=== PATIENT | female | born 1990 | race Caucasian/White ===

== ENCOUNTER 2023-09-16 19:03 | Emergency (ER) | payer OTHER, SELFPAY ==
[2023-09-16 19:30] VITALS: BP 140/94; PULSE 86; RESP 18; TEMP 37.1; O2SAT 97; BMI 24.9
--- NOTE | 2023-09-16 19:44 | EXP.UTC ---
Discharge Plan Disposition Patient Disposition: Home, Self-Care Condition: Good Prescriptions Prescriptions: New promethazine-DM 6.25-15 mg/5 mL Syrup 5 ml PO Q6H PRN (Reason: Cough) Qty: 240 0RF azithromycin [Zithromax] 250 mg tablet 250 mg PO UD DOSE PK Qty: 6 0RF Rx Instructions: Take two (2) tablets today, then one (1) tablet days #2 thru #5 methylprednisolone 4 mg Tablets,Dose Pack 4 mg PO DIRECTED 6 Days Qty: 21 0RF Rx Instructions: Take 1 pack as directed for 6 days guaifenesin [Mucinex] 600 mg tablet extended release 12hr 600 - 1,200 mg PO BIDP PRN (Reason: Congestion) Qty: 30 0RF Referrals Follow up/Referrals: Provider,Referral, MD [Primary Care Provider] - See instructions Activity Restrictions/Add. Instructions Additional Instructions/Restrictions: Drink plenty of fluids. Take tylenol or ibuprofen for pain or fever. Take the medications as directed. Follow up with your regular doctor. GO TO THE ER FOR ANY WORSENING SYMPTOMS Clinical Impressions Clinical Impression: Acute bronchitis, Acute viral syndrome Stand Alone Forms Stand Alone Forms: Work/School Release Instructions Patient Instructions: Acute Bronchitis, DI for Acute Bronchitis, DI for Viral Syndrome Discharge ED Provider: Chriss Carter [facility] General Stated complaint: cough, diff breathing Time Seen by Provider: 09/16/23 19:44 History of Present Illness Provider Complaint: She states that for the past 4 days she has had worsening chest congestion, sinus congestion, nonproductive cough, and malaise. She also has a headache. Related Data Previous Rx's Medication Instructions Recorded azithromycin 250 mg tablet 250 mg PO UD DOSE PK #6 tabs 09/16/23 (Zithromax) guaifenesin 600 mg tablet, 600 - 1,200 mg PO BIDP PRN 09/16/23 extended release 12 hr (Mucinex) Congestion #30 tabs methylprednisolone 4 mg tablets in 4 mg PO DIRECTED 6 days #21 tabs 09/16/23 a dose pack promethazine-DM 6.25 mg-15 mg/5 mL 5 ml PO Q6H PRN Cough #240 mL 09/16/23 oral syrup Allergies Allergy/AdvReac Type Severity Reaction Status Date / Time aspirin Allergy Verified 09/16/23 19:50 [facility] Disclaimer: The information contained in this section may have been updated after the patient was seen, as this information can be updated by other users. Social History Smoking Status: Never smoker alcohol intake: never current occupational status: employed Travel in the last 8 weeks: None ROS Obtained: Yes All systems reviewed & no additional complaints except as documented Constitutional Constitutional: Reports poor appetite Eyes Eyes: Reports system reviewed and no additional complaints, except as documented ENT Ears, Nose, Mouth, and Throat: Reports as per HPI Cardiovascular Cardiovascular: Reports system reviewed and no additional complaints, except as documented and Denies chest pain Respiratory Respiratory: Denies shortness of breath, Reports chest congestion, Reports cough, Denies stridor and Denies wheezing Gastrointestinal Gastrointestingal: Reports system reviewed and no additional complaints, except as documented; Denies abdominal pain, diarrhea or vomiting Musculoskeletal Musculoskeletal: Reports system reviewed and no additional complaints, except as documented and Denies arthralgias Integumentary/Breasts Skin/Breast: Reports system reviewed and no additional complaints, except as documented and Denies rash Neurologic Neurologic: Denies paresthesias Allergic/Immunologic Allergic/Immunologic: Denies wheezing Physical Exam General General appearance: alert and in no apparent distress Eye Eye exam: Present normal appearance, PERRL and EOMI ENT ENT exam: Present mucous membranes moist and normal external ear exam Expanded ENT Exam External ear exam: Present normal external inspection TM/Canal exam: Bilateral TM: erythema and bulging Nose exam: Absent sinus tenderness Nasal speculum exam: Bilateral: normal Mouth exam: Present normal external inspection; Absent drooling Teeth exam: Present normal inspection Throat exam: Present tonsillar erythema and tonsillomegaly Neck Neck exam: Present normal inspection, full ROM and trachea midline; Absent tenderness, lymphadenopathy or thyromegaly Chest Chest inspection: Present normal inspection and symmetric chest wall rise; Absent tenderness or rash Respiratory Respiratory exam: Present normal lung sounds bilaterally; Absent respiratory distress, wheezes, stridor or accessory muscle use Cardiovascular Cardiovascular exam: Present regular rate, normal rhythm and normal heart sounds Abdominal Exam Abdominal exam: Present soft; Absent distention, tenderness, guarding, rebound or rigidity Extremities Exam Extremities exam: Present normal inspection, full ROM and normal capillary refill; Absent tenderness or calf tenderness Back Exam Back exam: Present normal inspection and full ROM; Absent tenderness Neurological Exam Neurological exam: Present alert and oriented X3 Psychiatric Psychiatric exam: Present normal affect and normal mood Skin Skin exam: Present warm, dry, intact and normal color Lymphatic Lymphatic Findings: no adenopathy Medical Decision Making Medical Records Medical records reviewed: No I reviewed the patient's medical records. Adalberto Inquiry Pt receiving controlled substance: No Lab Data Lab results reviewed: Yes I reviewed the patient's lab results.
[2023-09-16 20:02] LABS: UTC Influenza A Antigen Negative (Negative)
[2023-09-16 20:03] LABS: UTC Influenza B Antigen Negative (Negative)
[2023-09-16 20:21] VITALS: BP 140/94; PULSE 86; RESP 18; TEMP 37.1; O2SAT 97
== END 2023-09-16 20:21 | disposition home or self-care (01) ==
PROVIDERS: Emergency Provider Nurse Practitioner Family
DX: J20.9 Acute bronchitis, unspecified (principal); B34.9 Viral infection, unspecified
CPT/HCPCS: 87635; 87804; 99204; 99212; G0463

== ENCOUNTER 2023-11-24 12:24 | Emergency (ER) | payer OTHER, SELFPAY ==
[2023-11-24 12:45] VITALS: BP 118/80; PULSE 90; RESP 18; TEMP 37; O2SAT 100; BMI 25.7
--- NOTE | 2023-11-24 12:55 | ED_ITS ---
Discharge Plan Disposition Patient Disposition: Home, Self-Care Condition: Good Prescriptions Prescriptions: New prednisone 10 mg tablet 10 mg PO BID 3 Days Qty: 6 0RF amoxicillin 875 mg tablet 875 mg PO Q12H Qty: 20 0RF [id number] [Bromfed DM] 2-30-10 mg/5 mL Syrup 5 ml PO Q6H PRN (Reason: Cough) Qty: 240 0RF ondansetron 4 mg Tablet,Disintegrating 4 mg PO Q8H PRN (Reason: Nausea) Qty: 8 0RF Referrals Follow up/Referrals: Provider,Referral, MD [Primary Care Provider] - See instructions Activity Restrictions/Add. Instructions Additional Instructions/Restrictions: Drink plenty of fluids. Take tylenol or ibuprofen for pain or fever. Take the medications as directed. Follow up with your regular doctor. GO TO THE ER FOR ANY WORSENING SYMPTOMS Clinical Impressions Clinical Impression: Acute viral syndrome, Sinusitis Stand Alone Forms Stand Alone Forms: Work/School Release Instructions Patient Instructions: DI for Sinusitis, DI for Viral Syndrome Discharge ED Provider: Chriss Carter [facility] General Stated complaint: congestion, sneezing, headache, fever, chills, Time Seen by Provider: 11/24/23 12:55 History of Present Illness Provider Complaint: She states that for the past 2 days she has had fever, malaise, headache, chills, and cough/congestion. Related Data Previous Rx's Medication Instructions Recorded amoxicillin 875 mg tablet 875 mg PO Q12H #20 tabs 11/24/23 [id number]-krvbgibluhyzdui-RM 5 ml PO Q6H PRN Cough #240 mL 11/24/23 2 mg-30 mg-10 mg/5 mL oral syrup (Bromfed DM) ondansetron 4 mg disintegrating 4 mg PO Q8H PRN Nausea #8 tabs 11/24/23 tablet prednisone 10 mg tablet 10 mg PO BID 3 days #6 tabs 11/24/23 Allergies Allergy/AdvReac Type Severity Reaction Status Date / Time aspirin Allergy Verified 11/24/23 12:59 [facility] Disclaimer: The information contained in this section may have been updated after the patient was seen, as this information can be updated by other users. Social History (Updated 09/16/23 @ 20:37 by Chriss Carter APRN) Smoking Status: Never smoker alcohol intake: never current occupational status: employed Travel in the last 8 weeks: None ROS Obtained: Yes All systems reviewed & no additional complaints except as documented Constitutional Constitutional: Reports chills and Reports fever(s) Eyes Eyes: Denies eye discharge ENT Ears, Nose, Mouth, and Throat: Reports as per HPI Cardiovascular Cardiovascular: Denies chest pain Respiratory Respiratory: Denies chest congestion and Reports cough Gastrointestinal Gastrointestingal: Reports nausea; Denies abdominal pain, constipation, cramping, diarrhea or vomiting Musculoskeletal Musculoskeletal: Denies arthralgias Integumentary/Breasts Skin/Breast: Denies rash Neurologic Neurologic: Denies paresthesias Physical Exam General General appearance: alert and in no apparent distress Eye Eye exam: Present normal appearance, PERRL and EOMI ENT ENT exam: Present mucous membranes moist and normal external ear exam Expanded ENT Exam External ear exam: Present normal external inspection TM/Canal exam: Bilateral TM: erythema and bulging Nose exam: Absent sinus tenderness Nasal speculum exam: Bilateral: normal Mouth exam: Present normal external inspection; Absent drooling Teeth exam: Present normal inspection Throat exam: Present tonsillar erythema and tonsillomegaly Neck Neck exam: Present normal inspection, full ROM and trachea midline; Absent tenderness, lymphadenopathy or thyromegaly Chest Chest inspection: Present normal inspection and symmetric chest wall rise; Absent tenderness or rash Respiratory Respiratory exam: Present normal lung sounds bilaterally; Absent respiratory distress, wheezes, stridor or accessory muscle use Cardiovascular Cardiovascular exam: Present regular rate, normal rhythm and normal heart sounds Abdominal Exam Abdominal exam: Present soft; Absent distention, tenderness, guarding, rebound or rigidity Extremities Exam Extremities exam: Present normal inspection, full ROM and normal capillary refill; Absent tenderness or calf tenderness Back Exam Back exam: Present normal inspection and full ROM; Absent tenderness Neurological Exam Neurological exam: Present alert and oriented X3 Psychiatric Psychiatric exam: Present normal affect and normal mood Skin Skin exam: Present warm, dry, intact and normal color Lymphatic Lymphatic Findings: no adenopathy Medical Decision Making Medical Records Medical records reviewed: No I reviewed the patient's medical records. Adalberto Inquiry Pt receiving controlled substance: No Lab Data Lab results reviewed: Yes I reviewed the patient's lab results.
[2023-11-24 13:13] LABS: UTC Strep Screen (Rapid) Negative (Negative)
[2023-11-24 13:14] LABS: UTC Influenza A Antigen Negative (Negative); UTC Influenza B Antigen Negative (Negative)
--- NOTE | 2023-11-24 13:55 | PC.NURSE ---
Sent up rapid flu and covid to lab
[2023-11-24 13:56] VITALS: BP 118/80; PULSE 90; RESP 18; TEMP 37; O2SAT 100
[2023-11-24 14:00] LABS: Influenza A, PCR Not Detected (NotDetected); Influenza B, PCR Not Detected (NotDetected)
[2023-11-24 14:58] LABS: Coronavirus 19, PCR Detected (NotDetected)
== END 2023-11-24 13:56 | disposition home or self-care (01) ==
PROVIDERS: Emergency Provider Nurse Practitioner Family
DX: J01.90 Acute sinusitis, unspecified (principal); B34.9 Viral infection, unspecified; R09.81 Nasal congestion; R51.9 Headache, unspecified; R50.9 Fever, unspecified; R05.9 Cough, unspecified
CPT/HCPCS: 87636; 87804; 87880; 99212; 99214; G0463

== ENCOUNTER 2023-12-27 12:23 | Emergency (ER) | payer OTHER, SELFPAY ==
[2023-12-27] VITALS (10 sets, daily range): BP systolic 90–124; BP diastolic 55–84; PULSE 64–83; RESP 15–18; TEMP 36.6–37.1; O2SAT 98–100; BMI 25.7
--- NOTE | 2023-12-27 12:38 | PC.NURSE ---
Pt brought over from [facility]
--- NOTE | 2023-12-27 13:31 | PC.NURSE ---
Rounded on pt and they had no needs at this time
[2023-12-27 13:43] LABS: Microscopic, Urine URINE MICROSCOPIC (MICROSCOPIC)
[2023-12-27 13:53] LABS: Appearance,Urine CLEAR (Clear); Bilirubin,Urine Negative (Negative); Blood, Urine Negative (Negative); Color,Urine YELLOW (Yellow); Glucose,Urine (UA) Negative (Negative); Ketones,Urine Negative (Negative); Leukocyte Esterase,Urine Negative (Negative); Nitrate,Urine Negative (Negative); Protein,Urine Negative (Negative); Specific Gravity, Urine 1.025 (1.005-1.030)
[2023-12-27 14:02] LABS: Alanine Aminotransferase 16 U/L (12-78); Albumin Level 4.5 g/dl (3.5-5.0); Albumin/Globulin Ratio 1.3 (1.1-1.8); Alkaline Phosphatase 50 U/L (38-126); Anion Gap 10.6 mEq/L (5-15); Aspartate Amino Transferase 25 U/L (14-36); Basophils # 0.1 K/mm3 (0-0.2); Basophils % 1.1 % (0.1-2.0); Bilirubin,Total 0.4 mg/dl (0.2-1.3); Blood Urea Nitrogen 8 mg/dl (7-17); Calcium 9.2 mg/dl (8.4-10.2); Carbon Dioxide 27 mmol/L (22.0-30.0); Chloride 106 mmol/L (98-107); Creatinine Clearance Estimated 123 mL/min (50-200); Eosinophils # 0.1 K/mm3 (0.0-0.4); Eosinophils % 1.7 % (0.1-12.0); Estimated Glomerular Filt Rate 96 ml/min (>60); GFR (African American) 117 ML/MIN (>60); Globulin 3.4 g/dL (1.3-3.2); Glucose 83 mg/dl (74-100); Hematocrit 41.5 % (37.0-47.0); Hemoglobin 13.2 g/dL (12.2-16.2); Lipase 54 U/L (23-300); Lymphocytes # 2.7 K/mm3 (0.7-4.5); Lymphocytes % 34.4 % (10-50); Mean Corpuscular HGB Conc 31.8 g/dL (31.8-35.4); Mean Corpuscular Hemoglobin 26.6 pg (27.0-31.2); Mean Corpuscular Volume 83.7 fl (81-99); Mean Platelet Volume 9.4 fl (7.4-10.4); Monocytes # 0.6 K/mm3 (0.1-1.0); Monocytes % 8.2 % (1.7-9.3); Neutrophils # 4.2 K/mm3 (1.8-7.8); Neutrophils % 54.7 % (37.0-80.0); Platelet Count 266 K/mm3 (142-424); Potassium 3.6 mmoL/L (3.5-5.1); Red Blood Count 4.96 M/mm3 (4.20-5.40); Red Cell Distribution Width 14.1 % (11.5-17.5); Sodium 140 mmol/L (136-145); Total Protein,Serum 7.9 g/dl (6.3-8.2); White Blood Count 7.7 K/mm3 (4.8-10.8)
--- NOTE | 2023-12-27 14:05 | ED_ITS ---
<Statement entered by Luly Eason MD - 12/27/23 22:04> I was consulted by the BRITTANEY, and we discussed the complexity of the problems being addressed. I approved the treatment and management plan for this patient's care in the emergency department, thus performing a substantive portion of the medical decision making. Luly Eason MD, ARNULFO, FACEP Discharge Plan Disposition Patient Disposition: Home, Self-Care Condition: Good Prescriptions Prescriptions: New sulfamethoxazole-trimethoprim [Bactrim DS] 800-160 mg tablet 1 tab PO BID 35 Days Qty: 70 0RF ondansetron 4 mg tablet,disintegrating 4 mg PO Q6H PRN (Reason: nausea and vomiting) Qty: 10 0RF No Action prednisone 10 mg tablet 10 mg PO BID 3 Days Qty: 6 0RF amoxicillin 875 mg tablet 875 mg PO Q12H Qty: 20 0RF hohugqgagbhqewd-jpsmfioon-YB [Bromfed DM] 2-30-10 mg/5 mL Syrup 5 ml PO Q6H PRN (Reason: Cough) Qty: 240 0RF ondansetron 4 mg Tablet,Disintegrating 4 mg PO Q8H PRN (Reason: Nausea) Qty: 8 0RF Referrals Follow up/Referrals: Provider,Referral, [Primary Care Provider] - See instructions Activity Restrictions/Add. Instructions Additional Instructions/Restrictions: Please take all medication as prescribed. Alternate Tylenol and Motrin every 4 hours as needed for symptoms. Return to the ER or your PCP as needed for any worsening change in your symptoms or no improvement. Clinical Impressions Clinical Impression: Urinary tract infection Discharge ED Provider: Josemanuel Paz General Adult HPI <JOSH Craven - Last Filed: 12/28/23 14:42> General Chief complaint: Abdominal Pain Stated complaint: Pain when urinating, pain in L abd, vomiting, naus Time Seen by Provider: 12/27/23 14:05 Mode of Arrival: Ambulatory Limitations: No Limitations Description of Symptoms (Recalled from ER Triage Doc. by RN): Patient reports left sided flank pain x3 days. Pt has a hx of kidney stones and UTIs. History of Present Illness HPI narrative: Patient presents for 3 days of left flank pain nausea vomiting and pain with urination. Patient has a history of previous kidney stones also of previous urinary tract infections. Patient had leftover antibiotics and has been taking those but her symptoms are unchanged. Patient denies fever chest pain shortness of breath chills hemoptysis hematochezia hematemesis melena hematuria. Related Data Previous Rx's Medication Instructions Recorded amoxicillin 875 mg tablet 875 mg PO Q12H #20 tabs 11/24/23 mogrpsbejxjilyy-lghtqyriqqxgrba-LC 5 ml PO Q6H PRN Cough #240 mL 11/24/23 2 mg-30 mg-10 mg/5 mL oral syrup (Bromfed DM) ondansetron 4 mg disintegrating 4 mg PO Q8H PRN Nausea #8 tabs 11/24/23 tablet prednisone 10 mg tablet 10 mg PO BID 3 days #6 tabs 11/24/23 ondansetron 4 mg disintegrating 4 mg PO Q6H PRN nausea and 12/27/23 tablet vomiting #10 tabs sulfamethoxazole 800 1 tab PO BID 5 weeks #70 tabs 12/27/23 mg-trimethoprim 160 mg tablet (Bactrim DS) Allergies Allergy/AdvReac Type Severity Reaction Status Date / Time aspirin Allergy Verified 11/24/23 12:59 [facility] <JOSH Craven - Last Filed: 12/28/23 14:42> [facility] Disclaimer: The information contained in this section may have been updated after the patient was seen, as this information can be updated by other users. Social History (Updated 09/16/23 @ 20:37 by Chriss Carter APRN) Smoking Status: Never smoker alcohol intake: never current occupational status: employed Travel in the last 8 weeks: None <OJSH Craven - Last Filed: 12/28/23 14:42> ROS Obtained: Yes Systems reviewed as appropriate & no additional complaints except as documented Physical Exam <JOSH Craven - Last Filed: 12/28/23 14:42> General General appearance: alert and in no apparent distress Chest Chest inspection: Present normal inspection and symmetric chest wall rise; Absent tenderness Respiratory Respiratory exam: Present normal lung sounds bilaterally; Absent respiratory distress Cardiovascular Cardiovascular exam: Present regular rate, normal rhythm and normal heart sounds Abdominal Exam Abdominal exam: Present soft, tenderness (Patient is tender to palpation in the left sided quadrants suprapubic area) and normal bowel sounds; Absent guarding, rebound or rigidity Extremities Exam Extremities exam: Present normal inspection and full ROM Back Exam Back exam: Present normal inspection, full ROM and CVA tenderness (L) (Presently tender to percussion) Neurological Exam Neurological exam: Present alert and oriented X3 Psychiatric Psychiatric exam: Present normal affect and normal mood Skin Skin exam: Present warm, dry and normal color Lymphatic Lymphatic Findings: no adenopathy Medical Decision Making <JOSH Craven - Last Filed: 12/28/23 14:42> Medical Records Medical records reviewed: Yes I reviewed the patient's medical records. Adalberto Inquiry Pt receiving controlled substance: No Vital Signs: 12/27/23 12:47 12/27/23 13:00 12/27/23 13:30 Temperature 98.7 F Temperature Source Oral Pulse Rate 78 73 Pulse Rate [Right Brachial] 83 Respiratory Rate 18 Blood Pressure 90/58 L 103/68 L Blood Pressure [Right Arm] 124/84 Blood Pressure Mean Blood Pressure Mean [Right Arm] 97 Blood Pressure Source [Right Arm] Automatic Cuff Blood Pressure Position [Right Arm] Sitting 02 Sat by Pulse Oximetry 99 98 98 Oxygen Delivery Method Room Air Room Air Room Air 12/27/23 14:00 12/27/23 14:30 12/27/23 15:30 Temperature Temperature Source Pulse Rate 64 71 74 Pulse Rate [Right Brachial] Respiratory Rate Blood Pressure 92/55 L 92/57 L 95/56 L Blood Pressure [Right Arm] Blood Pressure Mean 69 Blood Pressure Mean [Right Arm] Blood Pressure Source [Right Arm] Blood Pressure Position [Right Arm] 02 Sat by Pulse Oximetry 99 99 100 Oxygen Delivery Method Room Air Room Air 12/27/23 15:53 12/27/23 16:00 12/27/23 16:30 Temperature Temperature Source Pulse Rate 83 74 64 Pulse Rate [Right Brachial] Respiratory Rate Blood Pressure 99/63 L 93/58 L 95/63 L Blood Pressure [Right Arm] Blood Pressure Mean 74 72 68 Blood Pressure Mean [Right Arm] Blood Pressure Source [Right Arm] Blood Pressure Position [Right Arm] 02 Sat by Pulse Oximetry 99 100 98 Oxygen Delivery Method 12/27/23 17:18 Temperature 97.9 F Temperature Source Pulse Rate 64 Pulse Rate [Right Brachial] Respiratory Rate 15 Blood Pressure 95/63 L Blood Pressure [Right Arm] Blood Pressure Mean Blood Pressure Mean [Right Arm] Blood Pressure Source [Right Arm] Blood Pressure Position [Right Arm] 02 Sat by Pulse Oximetry Oxygen Delivery Method Lab Data Lab results reviewed: Yes I reviewed the patient's lab results. Lab Results 12/27/23 12:40: WBC 7.7, RBC 4.96, Hgb 13.2, Hct 41.5, MCV 83.7, MCH 26.6 L, MCHC 31.8, RDW 14.1, Plt Count 266, MPV 9.4, Neut % (Auto) 54.7, Lymph % (Auto) 34.4, Jackson % (Auto) 8.2, Eos % (Auto) 1.7, Baso % (Auto) 1.1, Neut # (Auto) 4.2, Lymph # (Auto) 2.7, Jackson # (Auto) 0.6, Eos # (Auto) 0.1, Baso # (Auto) 0.1, Sodium 140, Potassium 3.6, Chloride 106, Carbon Dioxide 27, Anion Gap 10.6, BUN 8, Creatinine 0.70, Estimated Creat Clear 123, Estimated GFR 96, Est GFR ( Amer) 117, Glucose 83, Calcium 9.2, Total Bilirubin 0.4, AST 25, ALT 16, Alkaline Phosphatase 50, Total Protein 7.9, Albumin 4.5, Globulin 3.4 H, Albumin/Globulin Ratio 1.3, Lipase 54, Serum HCG, Qual Negative, Urine Color Yellow, Urine Appearance Clear, Urine pH 6.0, Ur Specific Ulman 1.025, Urine Protein Negative, Urine Glucose (UA) Negative, Urine Ketones Negative, Urine Blood Negative, Urine Nitrate Negative, Urine Bilirubin Negative, Urine Urobilinogen 1.0, Ur Leukocyte Esterase Negative, Urine RBC None, Urine WBC Occasional, Ur Squamous Epith Cells 10-20, Urine Bacteria Trace 12/27/23 12:40 12/27/23 12:40 Orders (Tests/Meds): ED MEDICATIONS Discontinued Medications Generic Name Dose Route Start Last Admin Trade Name Freq PRN Reason Stop Dose Admin Acetaminophen 1,000 mg 12/27/23 14:23 12/27/23 14:36 Acetaminophen 1,000mg/100ml Vial IV 12/27/23 14:24 1,000 mg ONCE ONE Administration Lactated Ringer's 1,000 mls @ 999 mls/hr 12/27/23 14:23 12/27/23 14:36 Lactated Ringer's 1000 Ml Bag IV 12/27/23 15:23 999 mls/hr .Q1H1M ONE Administration Lactated Ringer's 1,000 mls @ 999 mls/hr 12/27/23 15:54 12/27/23 16:09 Lactated Ringer's 1000 Ml Bag IV 12/27/23 16:54 999 mls/hr .Q1H1M ONE Administration Iopamidol 75 ml 12/27/23 15:05 12/27/23 15:12 Iopamidol-370 (76%);100ml Bottle IV 12/27/23 15:06 75 ml ONCE ONE Administration Ketorolac Tromethamine 15 mg 12/27/23 14:23 12/27/23 14:36 Ketorolac 30mg/Ml Vial IV 12/27/23 14:24 15 mg ONCE ONE Administration Sodium Chloride 10 ml 12/27/23 13:04 Sodium Chloride 0.9% 10ml Flush Syringe IV 01/26/24 13:03 NEEDED PRN Maintain IV Site Sodium Chloride 10 ml 12/27/23 15:05 Sodium Chloride 0.9% 10ml Syr (Rad Only) IV 01/26/24 15:04 NEEDED PRN Maintain IV Site ORDERS Category Date Time Status CT abdomen pelvis w con Stat Cat Scan 12/27/23 14:23 Completed Complete Blood Count Auto Diff Stat Lab 12/27/23 12:40 Completed Comprehensive Metabolic Panel Stat Lab 12/27/23 12:40 Completed HCG Qualitative, Serum Stat Lab 12/27/23 12:40 Completed Lipase Stat Lab 12/27/23 12:40 Completed Urinalysis and Microscopic Stat Lab 12/27/23 12:40 Completed Medical Decision Narrative: In summary patient is a 33-year-old female who presents to the emergency department for evaluation of 3 days of left flank pain dysuria nausea vomiting. Patient is satting at 100% on room air with a systolic blood pressure of 95/56 heart rate is 74 respiratory rate of 18 upon arrival, and afebrile. Physical exam is remarkable for left flank CVA tenderness to percussion, tenderness to palpation in the left upper quadrant left lower quadrant and suprapubic area. Bowel sounds are normal. No rebound or guarding or rigidity.. Differential diagnosis includes complicated urinary tract infection versus kidney stone versus pyelonephritis versus gastrointestinal cause.. Initial workup will be conducted with hematologic labs urine CT scan of the abdomen pelvis. Initial interventions include crystalloid bolus Toradol and Tylenol. Initial workup reviewed by me shows that her hematologic labs are nonactionable including normal white count with no shift pyuria with trace bacteria although it is contaminated with skin cells . Upon repeat evaluation patient does reporting proved constitutional symptoms of flank pain and abdominal pain. Given this patient is appropriate for discharge at this time and will be discharged with a prescription for Zofran with follow-up with her PCP. I was consulted by the BRITTANEY, and we discussed the complexity of the problems being addressed. I approved the treatment and management plan for this patient's care in the Emergency Department, thus performing a substantive portion of the medical decision making. Josemanuel Paz DO <Josemanuel Paz DO - Last Filed: 12/27/23 16:11> Vital Signs: 12/27/23 12:47 12/27/23 13:00 12/27/23 13:30 Temperature 98.7 F Temperature Source Oral Pulse Rate 78 73 Pulse Rate [Right Brachial] 83 Respiratory Rate 18 Blood Pressure 90/58 L 103/68 L Blood Pressure [Right Arm] 124/84 Blood Pressure Mean Blood Pressure Mean [Right Arm] 97 Blood Pressure Source [Right Arm] Automatic Cuff Blood Pressure Position [Right Arm] Sitting 02 Sat by Pulse Oximetry 99 98 98 Oxygen Delivery Method Room Air Room Air Room Air 12/27/23 14:00 12/27/23 14:30 12/27/23 15:30 Temperature Temperature Source Pulse Rate 64 71 74 Pulse Rate [Right Brachial] Respiratory Rate Blood Pressure 92/55 L 92/57 L 95/56 L Blood Pressure [Right Arm] Blood Pressure Mean 69 Blood Pressure Mean [Right Arm] Blood Pressure Source [Right Arm] Blood Pressure Position [Right Arm] 02 Sat by Pulse Oximetry 99 99 100 Oxygen Delivery Method Room Air Room Air 12/27/23 15:53 12/27/23 16:00 12/27/23 16:30 Temperature Temperature Source Pulse Rate 83 74 64 Pulse Rate [Right Brachial] Respiratory Rate Blood Pressure 99/63 L 93/58 L 95/63 L Blood Pressure [Right Arm] Blood Pressure Mean 74 72 68 Blood Pressure Mean [Right Arm] Blood Pressure Source [Right Arm] Blood Pressure Position [Right Arm] 02 Sat by Pulse Oximetry 99 100 98 Oxygen Delivery Method 12/27/23 17:18 Temperature 97.9 F Temperature Source Pulse Rate 64 Pulse Rate [Right Brachial] Respiratory Rate 15 Blood Pressure 95/63 L Blood Pressure [Right Arm] Blood Pressure Mean Blood Pressure Mean [Right Arm] Blood Pressure Source [Right Arm] Blood Pressure Position [Right Arm] 02 Sat by Pulse Oximetry Oxygen Delivery Method Lab Data Lab Results 12/27/23 12:40: WBC 7.7, RBC 4.96, Hgb 13.2, Hct 41.5, MCV 83.7, MCH 26.6 L, MCHC 31.8, RDW 14.1, Plt Count 266, MPV 9.4, Neut % (Auto) 54.7, Lymph % (Auto) 34.4, Jackson % (Auto) 8.2, Eos % (Auto) 1.7, Baso % (Auto) 1.1, Neut # (Auto) 4.2, Lymph # (Auto) 2.7, Jackson # (Auto) 0.6, Eos # (Auto) 0.1, Baso # (Auto) 0.1, Sodium 140, Potassium 3.6, Chloride 106, Carbon Dioxide 27, Anion Gap 10.6, BUN 8, Creatinine 0.70, Estimated Creat Clear 123, Estimated GFR 96, Est GFR ( Amer) 117, Glucose 83, Calcium 9.2, Total Bilirubin 0.4, AST 25, ALT 16, Alkaline Phosphatase 50, Total Protein 7.9, Albumin 4.5, Globulin 3.4 H, Albumin/Globulin Ratio 1.3, Lipase 54, Serum HCG, Qual Negative, Urine Color Yellow, Urine Appearance Clear, Urine pH 6.0, Ur Specific Ulman 1.025, Urine Protein Negative, Urine Glucose (UA) Negative, Urine Ketones Negative, Urine Blood Negative, Urine Nitrate Negative, Urine Bilirubin Negative, Urine Urobilinogen 1.0, Ur Leukocyte Esterase Negative, Urine RBC None, Urine WBC Occasional, Ur Squamous Epith Cells 10-20, Urine Bacteria Trace Orders (Tests/Meds): ED MEDICATIONS Discontinued Medications Generic Name Dose Route Start Last Admin Trade Name Omerq PRN Reason Stop Dose Admin Acetaminophen 1,000 mg 12/27/23 14:23 12/27/23 14:36 Acetaminophen 1,000mg/100ml Vial IV 12/27/23 14:24 1,000 mg ONCE ONE Administration Lactated Ringer's 1,000 mls @ 999 mls/hr 12/27/23 14:23 12/27/23 14:36 Lactated Ringer's 1000 Ml Bag IV 12/27/23 15:23 999 mls/hr .Q1H1M ONE Administration Lactated Ringer's 1,000 mls @ 999 mls/hr 12/27/23 15:54 12/27/23 16:09 Lactated Ringer's 1000 Ml Bag IV 12/27/23 16:54 999 mls/hr .Q1H1M ONE Administration Iopamidol 75 ml 12/27/23 15:05 12/27/23 15:12 Iopamidol-370 (76%);100ml Bottle IV 12/27/23 15:06 75 ml ONCE ONE Administration Ketorolac Tromethamine 15 mg 12/27/23 14:23 12/27/23 14:36 Ketorolac 30mg/Ml Vial IV 12/27/23 14:24 15 mg ONCE ONE Administration Sodium Chloride 10 ml 12/27/23 13:04 Sodium Chloride 0.9% 10ml Flush Syringe IV 01/26/24 13:03 NEEDED PRN Maintain IV Site Sodium Chloride 10 ml 12/27/23 15:05 Sodium Chloride 0.9% 10ml Syr (Rad Only) IV 01/26/24 15:04 NEEDED PRN Maintain IV Site ORDERS Category Date Time Status CT abdomen pelvis w con Stat Cat Scan 12/27/23 14:23 Completed Complete Blood Count Auto Diff Stat Lab 12/27/23 12:40 Completed Comprehensive Metabolic Panel Stat Lab 12/27/23 12:40 Completed HCG Qualitative, Serum Stat Lab 12/27/23 12:40 Completed Lipase Stat Lab 12/27/23 12:40 Completed Urinalysis and Microscopic Stat Lab 12/27/23 12:40 Completed Medical Decision Narrative: In summary patient is a 33-year-old female who presents to the emergency department for evaluation of 3 days of left flank pain dysuria nausea vomiting. Patient is satting at 100% on room air with a systolic blood pressure of 95/56 heart rate is 74 respiratory rate of 18 upon arrival, and afebrile. Physical exam is remarkable for left flank CVA tenderness to percussion, tenderness to palpation in the left upper quadrant left lower quadrant and suprapubic area. Bowel sounds are normal. No rebound or guarding or rigidity.. Differential diagnosis includes complicated urinary tract infection versus kidney stone versus pyelonephritis versus gastrointestinal cause.. Initial workup will be conducted with hematologic labs urine CT scan of the abdomen pelvis. Initial interventions include crystalloid bolus Toradol and Tylenol. Initial workup reviewed by me shows that her hematologic labs are nonactionable including normal white count with no shift pyuria with trace bacteria although it is contaminated with skin cells . Upon repeat evaluation patient does reporting proved constitutional symptoms of flank pain and abdominal pain. Given this [patient is appropriate for discharge at this time and will be discharged with a prescription for... The case was discussed with hospital medicine regarding management and they will admit the patient their service for continued evaluation at this time... Etc.] I was consulted by the BRITTANEY, and we discussed the complexity of the problems being addressed. I approved the treatment and management plan for this patient's care in the Emergency Department, thus performing a substantive portion of the medical decision making. Josemanuel Paz DO <Luly Eason MD - Last Filed: 12/27/23 22:04> Vital Signs: 12/27/23 12:47 12/27/23 13:00 12/27/23 13:30 Temperature 98.7 F Temperature Source Oral Pulse Rate 78 73 Pulse Rate [Right Brachial] 83 Respiratory Rate 18 Blood Pressure 90/58 L 103/68 L Blood Pressure [Right Arm] 124/84 Blood Pressure Mean Blood Pressure Mean [Right Arm] 97 Blood Pressure Source [Right Arm] Automatic Cuff Blood Pressure Position [Right Arm] Sitting 02 Sat by Pulse Oximetry 99 98 98 Oxygen Delivery Method Room Air Room Air Room Air 12/27/23 14:00 12/27/23 14:30 12/27/23 15:30 Temperature Temperature Source Pulse Rate 64 71 74 Pulse Rate [Right Brachial] Respiratory Rate Blood Pressure 92/55 L 92/57 L 95/56 L Blood Pressure [Right Arm] Blood Pressure Mean 69 Blood Pressure Mean [Right Arm] Blood Pressure Source [Right Arm] Blood Pressure Position [Right Arm] 02 Sat by Pulse Oximetry 99 99 100 Oxygen Delivery Method Room Air Room Air 12/27/23 15:53 12/27/23 16:00 12/27/23 16:30 Temperature Temperature Source Pulse Rate 83 74 64 Pulse Rate [Right Brachial] Respiratory Rate Blood Pressure 99/63 L 93/58 L 95/63 L Blood Pressure [Right Arm] Blood Pressure Mean 74 72 68 Blood Pressure Mean [Right Arm] Blood Pressure Source [Right Arm] Blood Pressure Position [Right Arm] 02 Sat by Pulse Oximetry 99 100 98 Oxygen Delivery Method 12/27/23 17:18 Temperature 97.9 F Temperature Source Pulse Rate 64 Pulse Rate [Right Brachial] Respiratory Rate 15 Blood Pressure 95/63 L Blood Pressure [Right Arm] Blood Pressure Mean Blood Pressure Mean [Right Arm] Blood Pressure Source [Right Arm] Blood Pressure Position [Right Arm] 02 Sat by Pulse Oximetry Oxygen Delivery Method Lab Data Lab Results 12/27/23 12:40: WBC 7.7, RBC 4.96, Hgb 13.2, Hct 41.5, MCV 83.7, MCH 26.6 L, MCHC 31.8, RDW 14.1, Plt Count 266, MPV 9.4, Neut % (Auto) 54.7, Lymph % (Auto) 34.4, Jackson % (Auto) 8.2, Eos % (Auto) 1.7, Baso % (Auto) 1.1, Neut # (Auto) 4.2, Lymph # (Auto) 2.7, Jackson # (Auto) 0.6, Eos # (Auto) 0.1, Baso # (Auto) 0.1, Sodium 140, Potassium 3.6, Chloride 106, Carbon Dioxide 27, Anion Gap 10.6, BUN 8, Creatinine 0.70, Estimated Creat Clear 123, Estimated GFR 96, Est GFR ( Amer) 117, Glucose 83, Calcium 9.2, Total Bilirubin 0.4, AST 25, ALT 16, Alkaline Phosphatase 50, Total Protein 7.9, Albumin 4.5, Globulin 3.4 H, Albumin/Globulin Ratio 1.3, Lipase 54, Serum HCG, Qual Negative, Urine Color Yellow, Urine Appearance Clear, Urine pH 6.0, Ur Specific Ulman 1.025, Urine Protein Negative, Urine Glucose (UA) Negative, Urine Ketones Negative, Urine Blood Negative, Urine Nitrate Negative, Urine Bilirubin Negative, Urine Urobilinogen 1.0, Ur Leukocyte Esterase Negative, Urine RBC None, Urine WBC Occasional, Ur Squamous Epith Cells 10-20, Urine Bacteria Trace Orders (Tests/Meds): ED MEDICATIONS Discontinued Medications Generic Name Dose Route Start Last Admin Trade Name Freq PRN Reason Stop Dose Admin Acetaminophen 1,000 mg 12/27/23 14:23 12/27/23 14:36 Acetaminophen 1,000mg/100ml Vial IV 12/27/23 14:24 1,000 mg ONCE ONE Administration Lactated Ringer's 1,000 mls @ 999 mls/hr 12/27/23 14:23 12/27/23 14:36 Lactated Ringer's 1000 Ml Bag IV 12/27/23 15:23 999 mls/hr .Q1H1M ONE Administration Lactated Ringer's 1,000 mls @ 999 mls/hr 12/27/23 15:54 12/27/23 16:09 Lactated Ringer's 1000 Ml Bag IV 12/27/23 16:54 999 mls/hr .Q1H1M ONE Administration Iopamidol 75 ml 12/27/23 15:05 12/27/23 15:12 Iopamidol-370 (76%);100ml Bottle IV 12/27/23 15:06 75 ml ONCE ONE Administration Ketorolac Tromethamine 15 mg 12/27/23 14:23 12/27/23 14:36 Ketorolac 30mg/Ml Vial IV 12/27/23 14:24 15 mg ONCE ONE Administration Sodium Chloride 10 ml 12/27/23 13:04 Sodium Chloride 0.9% 10ml Flush Syringe IV 01/26/24 13:03 NEEDED PRN Maintain IV Site Sodium Chloride 10 ml 12/27/23 15:05 Sodium Chloride 0.9% 10ml Syr (Rad Only) IV 01/26/24 15:04 NEEDED PRN Maintain IV Site ORDERS Category Date Time Status CT abdomen pelvis w con Stat Cat Scan 12/27/23 14:23 Completed Complete Blood Count Auto Diff Stat Lab 12/27/23 12:40 Completed Comprehensive Metabolic Panel Stat Lab 12/27/23 12:40 Completed HCG Qualitative, Serum Stat Lab 12/27/23 12:40 Completed Lipase Stat Lab 12/27/23 12:40 Completed Urinalysis and Microscopic Stat Lab 12/27/23 12:40 Completed Critical Care <Luly Eason MD - Last Filed: 12/27/23 22:04> Critical Care Time Critical Care Time: No
--- NOTE | 2023-12-27 14:23 | CT_ITS ---
FINAL REPORT TECHNIQUE: After the administration of oral and intravenous contrast, axial images were obtained through the abdomen and pelvis by computed tomography. The study was performed with techniques to keep radiation dose as low as reasonably achievable, (ALARA). Individual dose reduction techniques using automated exposure control or adjustment of mA and/or kV according to the patient's size were employed. CLINICAL HISTORY: left flank pain COMPARISON: None FINDINGS: Abdomen: A calcified granuloma is noted in the lingula, otherwise the lung bases are clear. The liver parenchyma is homogeneous. The gallbladder is present. The spleen, pancreas, adrenals and kidneys appear unremarkable. The aorta is normal in caliber. There is no free fluid or adenopathy. There is moderate stool present throughout the colon. Pelvis: The appendix is normal in appearance. The urinary bladder is unremarkable. The uterus is eccentric to the patient's right. There is trace free fluid in the pelvis that may be physiologic. IMPRESSION: No acute intra-abdominal process. Moderate stool present throughout the colon. Trace free fluid in the pelvis that may be physiologic. Reviewed, Interpreted and Dictated by Agus Browning MD Transcribed by Kellen Scott Authenticated and . [facility]
[2023-12-27 14:30] LABS: WBC,Urine Occasional #/hpf (0-3)
[2023-12-27 14:31] LABS: Bacteria,Urine Trace /lpf
[2023-12-27] MEDS: KETOROLAC 30MG/ML VIAL 15 MG IV (14:36)
[2023-12-27] MEDS: ACETAMINOPHEN 1,000MG/100ML VIAL 1000 MG IV (14:36)
[2023-12-27] MEDS: LACTATED RINGERS 1000ML 1,000 ML 999 ML IV ×2 (14:36→16:09)
[2023-12-27 14:38] LABS: HCG Qualitative, Serum Negative (Negative)
--- NOTE | 2023-12-27 15:08 | PC.NURSE ---
pt back to room from ct scan
--- NOTE | 2023-12-27 15:10 | PC.NURSE ---
Rounded on pt. No needs voiced at this time. Call light within reach.
[2023-12-27] MEDS: IOPAMIDOL-370 (76%);100ML BOTTLE 75 ML IV (15:12)
--- NOTE | 2023-12-27 16:02 | PC.NURSE ---
Called RAD to check on preliminary report. Advised they would check.
--- NOTE | 2023-12-27 16:39 | PC.NURSE ---
Rounded on pt. Pt resting quietly at this time with no needs voiced. Call light within reach.
--- NOTE | 2023-12-27 17:03 | PC.NURSE ---
Rounded on pt to see if they had any needs and pt had no needs at this time
== END 2023-12-27 17:24 | disposition home or self-care (01) ==
LOC: UTC 12:25 → ER 12:32
PROVIDERS: Physician Assistant; Emergency Provider Emergency Medicine
DX: N39.0 Urinary tract infection, site not specified (principal); R10.32 Left lower quadrant pain; R10.12 Left upper quadrant pain; R11.2 Nausea with vomiting, unspecified
CPT/HCPCS: 74177; 80053; 81001; 83690; 84703; 85025; 96361; 96374; 96375; 99284; J0131; Q9967